=== PATIENT | male | born 1980 | race Caucasian/White ===

== ENCOUNTER 2016-11-02 16:55 | Emergency (ER) | payer OTHER ==
[~2016-11-02] VITALS: Ht 167.6 cm; Wt 72.6 kg
[2016-11-02 17:02] VITALS: BP 112/80
--- NOTE | 2016-11-02 17:18 | ED GENERAL ADULT ---
History of Present Illness General Chief Complaint: ETOH/Drug Related Complaint Stated Complaint: UNDER THE INFLUENCE Source: patient, EMS, police Exam Limitations: no limitations Vital Signs & Intake/Output Vital Signs & Intake/Output Vital Signs Date Time Temp Pulse Resp B/P Pulse O2 O2 Flow FiO2 Ox Delivery Rate 11/02 1711 97 11/02 1702 97.6 100 20 112/80 97 Room Air Allergies Coded Allergies: No Known Allergies (11/02/16) Reconcile Medications No Known Home Medications Triage Note: BIBA FOUND BY PD STEALING FROM MAIL [employer]OXES PD FELT PATIENT INCOHERENT SENT TO ER FOR EVAL Triage Nurses Notes Reviewed? yes HPI: Patient was found by the police attempted to steal out of the [employer]. They felt that the patient was incoherent supportive in for evaluation. Patient states that he was sitting on the curb collecting discarded cigarettes so he could call his own cigarettes when the police came up and began to her arrest him. Patient states that he is very anxious because his aunt is admitted for Crohn's disease. Also he is very anxious because his daughter enlisted in the 3 weeks ago. Since states that he really needs something for his anxiety. Patient states he has no point with the psychiatrist next month. PATIENT denies any suicidal or homicidal ideations. Past History Travel History Traveled to [place] past 21 day No Medical History Any Pertinent Medical History? see below for history Surgical History Surgical History: non-contributory Psychosocial History Tobacco Use: Current Daily Use Daily Tobacco Use Amount/Type: => 5 Cigarettes daily ETOH Use: denies use Illicit Drug Use: denies illicit drug use Family History Hx Contributory? No Review of Systems Review of Systems Constitutional: Reports: no symptoms. EENTM: Reports: no symptoms. Respiratory: Reports: no symptoms. Cardiovascular: Reports: no symptoms. GI: Reports: no symptoms. Genitourinary: Reports: no symptoms. Musculoskeletal: Reports: no symptoms. Skin: Reports: no symptoms. Neurological/Psychological: Reports: see HPI, anxiety. Hematologic/Endocrine: Reports: no symptoms. Immunologic/Allergic: Reports: no symptoms. All Other Systems: Reviewed and Negative Physical Exam Physical Exam General Appearance: well developed/nourished, alert, awake, anxious, moderate distress Head: atraumatic, normal appearance Eyes: Bilateral: PERRL, EOMI. Ears, Nose, Throat: normal pharynx, normal ENT inspection Neck: normal inspection, supple, full range of motion Respiratory: normal breath sounds, chest non-tender, no respiratory distress, lungs clear Cardiovascular: regular rate/rhythm, normal peripheral pulses Gastrointestinal: normal bowel sounds, soft, non-tender Back: normal inspection, normal range of motion Extremities: normal inspection, normal capillary refill, normal range of motion, no edema Neurologic/Psych: no motor/sensory deficits, awake, alert, oriented x 3, normal mood/affect Skin: intact, normal color, warm/dry Core Measures ACS in differential dx? No CVA/TIA Diagnosis: No Severe Sepsis Present: No Septic Shock Present: No Progress Differential Diagnoses I considered the following diagnoses in my evaluation of the patient: [Alcohol intoxication, drug intoxication, anxiety, electrolyte abnormality] Plan of Care: Orders Procedure Date/time Status URINE DRUGS OF ABUSE 11/02 1716 Complete ETHANOL 11/02 1716 Complete COMPREHENSIVE METABOLIC PANEL 11/02 1716 Complete CBC WITHOUT DIFFERENTIAL 11/02 1716 Complete Laboratory Tests 11/02/16 1815: Anion Gap 8, Estimated GFR > 60, BUN/Creatinine Ratio 15.7, Glucose 102 H, Calcium 9.1, Total Bilirubin 0.3, AST 21, ALT 17 L, Alkaline Phosphatase 63, Total Protein 6.9, Albumin 3.8, Globulin 3.1, Albumin/Globulin Ratio 1.2, CBC w Diff NO MAN DIFF REQ, RBC 4.56 L, MCV 85.7, MCH 28.1, RDW 16.0 H, MPV 9.0, Gran % 60.3, Lymphocytes % 25.9, Monocytes % 5.6, Eosinophils % 7.0 H, Basophils % 1.2, Absolute Granulocytes 7.0 H, Absolute Lymphocytes 3.0, Absolute Monocytes 0.6, Absolute Eosinophils 0.8, Absolute Basophils 0.1, PUBS MCHC 32.8 L, Serum Alcohol < 10.0 11/02/16 1800: Urine Opiates Screen < 100.00, Methadone Screen > 735 H, Barbiturate Screen < 60, Ur Phencyclidine Scrn 31.50 H, Amphetamines Screen < 100, U Benzodiazepines Scrn > 800 H, Urine Cocaine Screen 193, Urine Cannabis Screen > 80.00 H Initial ED EKG: none Comments: ctpmp reviewed. Patient was given a prescription for Xanax 14 tablets back in June but has not had any subsequent prescriptions. Patient had an unlabeled pill bottle in his pocket with various pills in it. The pill bottle has been discarded. Departure Departure Disposition: HOME OR SELF CARE Condition: Stable Clinical Impression Primary Impression: Anxiety Additional Instructions: TAKE MEDICATION ONLY THAT ARE PRESCRIBED DO NOT USE DRUGS BOUGHT ON THE STREET Departure Forms: Customer Survey General Discharge Information Prescriptions: Current Visit Scripts Alprazolam (Xanax) 1 TAB PO BIDP PRN ANXIETY #12 TAB Critical Care Note Critical Care Note Critical Care Time: non-applicable
[2016-11-02 18:28] LABS: ABSOLUTE BASOPHIL COUNT 0.1 /CUMM (0.0-0.2); ABSOLUTE EOSINOPHIL COUNT 0.8 /CUMM (0.0-0.7); ABSOLUTE MONOCYTE COUNT 0.6 /CUMM (0.10-0.60); BASOPHIL % 1.2 % (0.0-2.0); GRANULOCYTE % 60.3 % (42.2-75.2); HEMATOCRIT 39.1 % (42-52); MEAN CORPUSCULAR HGB 28.1 PG (27.0-31.0); MEAN CORPUSCULAR HGB CONC 32.8 G/DL (33.0-37.0); MEAN CORPUSCULAR VOLUME 85.7 FL (80.0-94.0); PLATELET COUNT 269 /CUMM (130-400); RED BLOOD CELL CT 4.56 /CUMM (4.70-6.10); WHITE BLOOD CELL COUNT 11.6 /CUMM (4.8-10.8)
[2016-11-02] MEDS ORDERED: XANAX0.5 M1 PO (19:11)
== END 2016-11-02 19:19 ==
LOC: ERH 16:55
PROVIDERS: Emergency Medicine
DX: F41.9 Anxiety disorder, unspecified (principal)
CPT/HCPCS: 80307; G0480

== ENCOUNTER 2016-12-14 10:52 | Emergency (ER) | payer OTHER ==
[~2016-12-14] VITALS: Ht 182.9 cm; Wt 72.6 kg
[~2016-12-14 10:52] MED LIST: XANAX0.5 M1 PO
[2016-12-14 10:55] VITALS: BP 157/95
[2016-12-14] MEDS ORDERED: NARCAN4 MG NAS (11:21)
[2016-12-14] MEDS ORDERED: KLONOPIN2 M1 PO (11:22)
--- NOTE | 2016-12-14 11:25 | ED GENERAL ADULT ---
History of Present Illness General Chief Complaint: General Adult Stated Complaint: ANXIETY,MED W/D Source: patient Exam Limitations: no limitations Vital Signs & Intake/Output Vital Signs & Intake/Output Vital Signs Date Time Temp Pulse Resp B/P Pulse O2 O2 Flow FiO2 Ox Delivery Rate 12/14 1055 97.0 86 18 157/95 98 Room Air Allergies Coded Allergies: No Known Allergies (11/02/16) Reconcile Medications Alprazolam (Xanax) 0.5 MG TABLET 1 TAB PO BIDP PRN ANXIETY Alprazolam 0.5 MG TABLET 1 TAB PO BIDP PRN anxiety Clonazepam (Klonopin) 2 MG TABLET 1 TAB PO DAILY ANXIETY (Reported) Naloxone HCl (Narcan) 4 MG/ACTUATION SPRAY 1 SPRAY JONATHAN PRN OD (Reported) Triage Note: PT STATES THAT HE RAN OUT OF KLONOPIN, TAKES 2MG 3X DAY Triage Nurses Notes Reviewed? yes Onset: Gradual Duration: week(s): (1) Timing: recent history Injury Environment: home Severity: moderate Severity Numbers: 7 Modifying Factors: Improves With: other (taking benzos). HPI: Patient is a 36-year-old male with history of anxiety presenting to the emergency department with chief complaint of worsening anxiety over the past 1 week. He reports that he ran out of his Klonopin. He was recently switched from Xanax to Klonopin. He supposed to take 2 mg 3 times a day. He is buying medication off the street because he ran out. Has appointment 2 weeks. Patient reports that he was seen and evaluated here about one month ago for similar symptoms. He was prescribed Xanax for week. Patient denies any suicidal or homicidal ideation. He does report feeling anxious. Denies any chest pain palpitations or shortness of breath. No nausea or vomiting or fevers. He does report that he feels jittery if he does not take his medications. Denies alcohol use. Denies other drug use. He reports that he takes his medications as prescribed.- (TERESA GRIER) Past History Travel History Traveled to [place] past 21 day No Medical History Any Pertinent Medical History? see below for history Neurological: NONE EENT: NONE Cardiovascular: NONE Respiratory: NONE Gastrointestinal: NONE Hepatic: NONE Renal: NONE Musculoskeletal: chronic back pain Psychiatric: anxiety, substance abuse Endocrine: NONE Blood Disorders: NONE Cancer(s): NONE ENVIRONMENTAL HEALTH AIDE/Reproductive: NONE Surgical History Surgical History: non-contributory Psychosocial History What is your primary language Uzbek Tobacco Use: Current Daily Use Daily Tobacco Use Amount/Type: => 5 Cigarettes daily ETOH Use: denies use Illicit Drug Use: denies illicit drug use Family History Hx Contributory? No (TERESA GRIER) Review of Systems Review of Systems Constitutional: Reports: no symptoms. (TERESA GRIER) Physical Exam Physical Exam General Appearance: well developed/nourished, no apparent distress, alert, awake , comfortable Comments: Well-developed well-nourished person in no acute distress HEENT: Pupils equally round and reactive to light and accommodation. Nose is atraumatic. Neck: Normal inspection Back: Nontender Cardiovascular: Regular rate and rhythms no murmurs rubs or gallops, normal JVP Respiratory: Chest nontender. No respiratory distress.breath sounds clear to auscultation bilaterally Extremity: No edema Neuro: Alert oriented x3 Skin: No appreciable rash on exposed skin, skin is warm and dry. Psych: Anxious Core Measures ACS in differential dx? No CVA/TIA Diagnosis: No Severe Sepsis Present: No Septic Shock Present: No (TERESA GRIER) Progress Differential Diagnoses I considered the following diagnoses in my evaluation of the patient: Generalize anxiety, medication refill, polysubstance abuse Plan of Care: Patient given limited prescription for Xanax. He'll follow with his primary care physician. Patient nontoxic. Initial ED EKG: none (TERESA GRIER) Departure Departure Time of Disposition: 1135 Disposition: HOME OR SELF CARE Condition: Stable Clinical Impression Primary Impression: Anxiety Referrals: HOWIE GILMORE MD (PCP/Family) Additional Instructions: follow up with your appt in 2 weeks- keep apt. do not use drug bought off street. take alprazolam as prescribed. return for worsening symptoms or concerns. Departure Forms: Customer Survey General Discharge Information Prescriptions: Current Visit Scripts Alprazolam 1 TAB PO BIDP PRN anxiety #10 TAB (TERESA GRIER) PA/TIMBER SETTER Co-Sign Statement Statement: ED Attending supervision documentation- [] I saw and evaluated the patient. I have also reviewed all the pertinent lab results and diagnostic results. I agree with the findings and the plan of care as documented in the PA's/TIMBER SETTER's documentation. x I have reviewed the ED Record and agree with the PA's/TIMBER SETTER's documentation. [] Additions or exceptions (if any) to the PAs/TIMBER SETTER's note and plan are summarized below: [] (THIAGO BANKS,TOMASA) Critical Care Note Critical Care Note Critical Care Time: non-applicable (PEDRO ARMENTA,TERESA)
[2016-12-14] MEDS ORDERED: ALPRAZOLAM0.5 M4 PO (11:38)
== END 2016-12-14 11:47 ==
LOC: ERH 10:52
DX: F41.9 Anxiety disorder, unspecified (principal)
CPT/HCPCS: 99281